=== PATIENT | male | born 2000 | race Caucasian/White ===

== ENCOUNTER → 2018-03-18 15:27 | Outpatient (CLI) | payer OTHER, SELFPAY ==
--- NOTE | 2018-03-18 16:09 | DI.RAD.S_ITS ---
PROCEDURE: XR ANKLE LT MIN 3V INDICATIONS: swelling distal fibula still with ankle pain TECHNIQUE: 3 views of the ankle were acquired. COMPARISON: Located Within [facility], , ANKLE 3 VIEWS LEFT, 02/25/2018, 21:34. FINDINGS: Bones: No fractures or dislocations. Ankle mortise is normally aligned. No suspicious bony lesions. Soft tissues: No tibiotalar joint effusion. Achilles tendon appears normal. IMPRESSION: No trauma found. Dictated by: Bhavik Rene M.D. on 03/18/2018 at 16:32 Approved by: Bhavik Rene M.D. on 03/18/2018 at 16:32
== END ==
PROVIDERS: Family Provider Physician Assistant; PCP Physician Assistant; Visit Provider Physician Assistant
DX: M25.572 Pain in left ankle and joints of left foot (principal)
CPT/HCPCS: 73610